=== PATIENT | female | born 1940 | race Caucasian/White ===

== ENCOUNTER → 2018-06-15 07:46 | Outpatient (CLI) | payer MEDICARE, OTHER, SELFPAY ==
--- NOTE | 2018-06-15 | DI.MG.S_ITS ---
BILATERAL DIGITAL SCREENING MAMMOGRAM 3D/2D WITH CAD: 06/15/2018 CLINICAL: Routine screening. Comparison is made to exams dated: 12/12/2016 mammogram, 10/23/2015 mammogram - [facility], 05/04/2013 mammogram, 04/10/2011 mammogram, and 04/21/2013 mammogram - [facility]. The tissue of both breasts is heterogeneously dense. This may lower the sensitivity of mammography. Current study was also evaluated with a Computer Aided Detection (CAD) system. There are benign vascular calcifications in the right breast. No significant masses, calcifications, or other findings are seen in either breast. There has been no significant interval change. IMPRESSION: BENIGN There is no mammographic evidence of malignancy. A 1 year screening mammogram is recommended. This exam was interpreted at Station ID: [id number]. NOTE: For mammograms, a report in lay terms will be sent to the patient. Approximately 15% of breast malignancies will not be visualized mammographically. In the management of a palpable breast mass, a negative mammogram must not discourage biopsy of a clinically suspicious lesion. Electronically Signed By: Dalton toney/susannah:06/15/2018 08:41:38 letter sent: Normal Exam ACR BI-RADS Category 2: Benign Finding(s) 3342F
== END ==
PROVIDERS: Family Provider Family Medicine; PCP Family Medicine; Visit Provider Family Medicine
DX: Z12.31 Encounter for screening mammogram for malignant neoplasm of breast (principal)
CPT/HCPCS: 77063; 77067

== ENCOUNTER → 2019-07-16 12:08 | Outpatient (CLI) | payer MEDICARE, OTHER, SELFPAY ==
--- NOTE | 2019-07-16 | DI.MG.S_ITS ---
BILATERAL DIGITAL SCREENING MAMMOGRAM 3D/2D WITH CAD: 07/16/2019 CLINICAL: Routine screening. Comparison is made to exams dated: 06/15/2018 mammogram, 12/12/2016 mammogram, and 10/23/2015 mammogram - [facility]. The tissue of both breasts is heterogeneously dense. This may lower the sensitivity of mammography. Current study was also evaluated with a Computer Aided Detection (CAD) system. There are benign vascular calcifications in the right breast. No significant masses, calcifications, or other findings are seen in either breast. There has been no significant interval change. IMPRESSION: There is no mammographic evidence of malignancy. A 1 year screening mammogram is recommended. This exam was interpreted at Station ID: [id number]. NOTE: For mammograms, a report in lay terms will be sent to the patient. Approximately 15% of breast malignancies will not be visualized mammographically. In the management of a palpable breast mass, a negative mammogram must not discourage biopsy of a clinically suspicious lesion. Electronically Signed By: Kayli lawrence/susannah:07/16/2019 13:07:35 letter sent: Normal Exam ACR BI-RADS Category 2: Benign Finding(s) 3342F
== END ==
PROVIDERS: PCP Family Medicine; Visit Provider Family Medicine
DX: Z12.31 Encounter for screening mammogram for malignant neoplasm of breast (principal)
CPT/HCPCS: 77063; 77067

== ENCOUNTER → 2020-12-06 11:31 | Outpatient (CLI) | payer MEDICARE, OTHER, SELFPAY ==
[2020-12-06] MEDS: COVID-19 VACC, Ad26(JANSSEN)/PF 0.5 ML IM (12:01)
== END ==
PROVIDERS: Visit Provider Internal Medicine
DX: Z23 Encounter for immunization (principal)
CPT/HCPCS: 0031A; 91303

== ENCOUNTER → 2021-08-03 10:17 | Outpatient (CLI) | payer MEDICARE, OTHER, SELFPAY ==
[2021-08-03] MEDS: COVID-19 VACC #3, MRNA(MOD) 50 MCG/0.25 ML VIAL IM (10:25)
== END ==
PROVIDERS: Visit Provider Internal Medicine
DX: Z23 Encounter for immunization (principal)
CPT/HCPCS: 0013A; 91301

== ENCOUNTER → 2021-09-03 08:36 | Outpatient (CLI) | payer MEDICARE, OTHER, SELFPAY ==
[2021-09-03 11:38] LABS: COVID19 -Nasal RAPID Negative (Negative)
== END ==
PROVIDERS: Visit Provider Nurse Practitioner Family
DX: Z20.822 Contact with and (suspected) exposure to COVID-19 (principal)
CPT/HCPCS: 87635; C9803

== ENCOUNTER 2021-09-05 07:09 | Day surgery (SDC) | payer MEDICARE, OTHER, SELFPAY ==
[2021-09-05] VITALS (7 sets, daily range): BP systolic 111–187; BP diastolic 60–95; PULSE 80–93; RESP 14–22; TEMP 36.3–36.8; O2SAT 94–97; BMI 32.5
--- NOTE | 2021-09-05 | PATH_ITS ---
[facility] Accession Number: [id number] . 01 Material submitted: . PART A: colon - TRANSVERSE COLON POLYP PART B: sigmoid colon - SIGMOID COLON POLYP . 02 Diagnosis: A. Transverse Colon Polyp: Portions of tubular adenoma x2. . B. Sigmoid Colon Polyp: Portion of hyperplastic polyp x1. Portion of tubular adenoma x1. [facility] 09/10/2021 1507 Local . 02 Electronically signed: . Juliet Daniels MD, Pathologist NPI- [id number] . 01 Gross description: . Part A: TRANSVERSE COLON POLYP: Received in formalin are 2 fragment(s) of saucedo, soft tissue measuring 0.3 x 0.3 x 0.3 cm to 0.3 x 0.3 x 0.2 cm submitted entirely in 1 cassette(s) Part B: SIGMOID COLON POLYP: Received in formalin is 1 fragment(s) of saucedo, soft tissue measuring 0.6 x 0.4 x 0.1 cm submitted entirely in 1 cassette(s) /QB 09/06/2021 0852 Local . 02 Pathologist provided ICD-10: K63.5 . 02 CPT . 565216, [id number] Performed at: 01 [facility] [address], [place], [place] [id number] MD Kingston Benavides MD Phone: [phone] Performed at: 02 [facility] [address] [place], [place] [id number] MD Belkis Martinez MD Phone: [phone]
[2021-09-05] MEDS: LACTATED RINGERS 1,000 ML 42 ML IV (08:02)
--- NOTE | 2021-09-05 08:32 | PM.HP.1 ---
History of Present Illness History of Present Illness Date Patient Seen: 09/05/21 Chief complaint: DX COLONOSCOPY Narrative: Family history of colon cancer and polyps in first-degree relatives Patient History Medical History (Updated 09/05/21 @ 07:42 by Swetha Sierra RN) Ankle fracture, right Hypertension Surgical History (Updated 09/05/21 @ 07:42 by Swetha Sierra RN) H/O: hysterectomy History of hip replacement Family & Social History Social History: household members none Tobacco & Substance use: Smoking Status Never smoker alcohol intake frequency a few times a week Substance Use Type does not use Meds Home Medications and Allergies Home Medications Medication Instructions Recorded Confirmed Type Synthroid 100 mg PO DAILY 09/05/21 09/05/21 History estradiol 0.5 mg PO DAILY 09/05/21 09/05/21 History etodolac 400 mg PO DAILY 09/05/21 09/05/21 History metoprolol tartrate 50 mg PO DAILY 09/05/21 09/05/21 History Allergies Allergy/AdvReac Type Severity Reaction Status Date / Time No Known Drug Allergies Allergy Verified 09/05/21 07:31 Exam Vital Signs (past 8 hours): - 09/05/21 07:25 Temperature 98.2 F Pulse Rate 93 H Respiratory Rate 16 Blood Pressure 187/95 H Pulse Oximetry 97 Oxygen Delivery Method Room Air Narrative Exam Narrative: Oropharynx free of lesions Chest clear to auscultation percussion Cardiac exam reveals no S3 or murmur Assessment & Plan Assessment & Plan narrative: Family history of colon cancer and polyps in first-degree relatives. Need for follow-up colonoscopy at a 5 year interval. Risks, benefits, alternatives have been explained. Time Spent With Patient Critical Care time: I spent a total of [] minutes of critical care time on this patient's care today; this time is exclusive of procedural time.
--- NOTE | 2021-09-05 08:34 | PM.OP.COLON ---
Operative Date/Time/Diagnoses Date of procedure: 09/05/21 Pre-op diagnosis: See indication and findings Procedure & Clinicians Study performed: Colonoscopy Indications: 1st degree relatives with polyps and colon cancer Surgeon: Glenroy Sommers Procedure Notes Procedure in detail: After informed consent was obtained the patient was placed in the left lateral decubitus position. The video colonoscope was introduced the rectum slowly advanced to the cecum. Preparation was good. On slow withdrawal mucosa was carefully examined. The scope was removed. The patient tolerated procedure well. Blood loss none Complications none Sedation mac Findings 1. 5 mm polyp in the proximal transverse colon Jumbo biopsy removed completely 2. 3 mm polyp at 40 cm/sigmoid colon. Jumbo biopsy removed completely 3. Otherwise negative colonoscopy to cecum Will follow up on biopsy results but if the patient is in good health would follow-up in 3-5 years. On the other hand this could be her last colonoscopy at age 81.
--- NOTE | 2021-09-05 09:03 | SUR.PHASEI ---
Received to PACU after colonoscopy with sedation. Report from SLOAN Castillo and VENUS Coleman.
== END 2021-09-05 09:40 | disposition home or self-care (01) ==
PROVIDERS: PCP Family Medicine; Referring Provider Internal Medicine Gastroenterology; Visit Provider Internal Medicine Gastroenterology
PROC: 0DJD8ZZ Inspection of Lower Intestinal Tract, Via Natural or Artificial Opening Endoscopic (ICD-10-PCS; CPT 45378; principal; 2021-09-05 08:30)
DX: Z12.11 Encounter for screening for malignant neoplasm of colon (principal); Z80.0 Family history of malignant neoplasm of digestive organs; Z83.71 Family history of colonic polyps; I10 Essential (primary) hypertension; D12.3 Benign neoplasm of transverse colon; D12.5 Benign neoplasm of sigmoid colon
CPT/HCPCS: 45380; J2704

== ENCOUNTER → 2023-01-10 10:48 | Outpatient (CLI) | payer MEDICARE, OTHER, SELFPAY ==
[2023-01-10 12:07] LABS: BUN Creatinine Ratio 26.2 (6-22); Blood Urea Nitrogen 17 mg/dL (7-17); Calcium 9.7 mg/dL (8.4-10.2); Carbon Dioxide 26 mmol/L (22-32); Chloride 103 mmol/L (98-107); Estimated Glomerular Filt Rate > 60 mL/min (>60); Glucose 112 mg/dL (80-110); HEMOLYSIS < 15 (0-50); Potassium 4.4 mmol/L (3.4-5.1); Sodium 138 mmol/L (137-145)
[2023-01-10 12:11] LABS: Add Manual Diff / Slide Review SLIDE REVIEW; Basophils Absolute Auto 0 /uL (0-100); Basophils Percent Auto 0.7 % (0-2); Eosinophils Absolute Auto 0 /uL (0-450); Eosinophils Percent Auto 0.4 % (2-4); Hematocrit 43.2 % (36-46); Hemoglobin 14.6 g/dL (12.0-16.0); Lymphocytes Absolute Auto 1600 /uL (1100-4500); Lymphocytes Percent Auto 22.8 % (25-40); Mean Corpuscular HGB Conc 33.8 % (30-36); Mean Corpuscular Hemoglobin 30.9 PG (26-34); Mean Corpuscular Volume 91.4 fL (80-100); Monocytes Absolute Auto 1500 /uL (0-900); Neutrophils Absolute Auto 3700 /uL (1500-7000); Neutrophils Percent Auto 54.1 % (50-75); Platelet Count 86 X10^3/uL (150-400); Red Blood Cell Count 4.73 X10^6/uL (4.0-5.2); Red Cell Distribution Width 16.1 % (11.6-14.8); White Blood Cell Count 6.8 X10^3/uL (4.5-11.0)
[2023-01-10 12:39] LABS: Thyroid Stimulating Hormone 1.51 uIU/mL (0.47-4.68)
[2023-01-10 14:01] LABS: Anisocytosis 1+
== END ==
PROVIDERS: PCP Family Medicine; Referring Provider Family Medicine; Visit Provider Family Medicine
DX: I10 Essential (primary) hypertension (principal); D69.49 Other primary thrombocytopenia; E03.9 Hypothyroidism, unspecified
CPT/HCPCS: 36415; 80048; 84443; 85025

== ENCOUNTER → 2023-01-21 10:41 | Outpatient (CLI) | payer MEDICARE, OTHER, SELFPAY ==
--- NOTE | 2023-01-21 | DI.RAD.S_ITS ---
Bone Density Report Name: JARED FITZGERALD Age: 82 Sex: Female Ethnicity: White Date of : 1940 Indication: postmenopausal; screening for osteoporosis; prior fracture; Referring Provider: AMANDA CARDONA Study: Bone densitometry was performed. Exam Date: January 21, 2023 Accession number: [id number] Bone Density: Region BMD T-score Z-score Classification AP Spine(L1, L2) 1.078 0.9 3.5 Normal Femoral Neck (Right) 0.819 -0.3 2.2 Normal Total Hip (Right) 0.923 -0.2 2.1 Normal Total Forearm (Left) 0.544 -0.7 2.8 Normal 1/3 Forearm (Left) 0.662 -0.5 3.0 Normal UD Forearm (Left) 0.423 -0.4 2.2 Normal World Health Organization criteria for BMD impression classify patients as: Normal (T-score at or above -1.0), Osteopenia (T-score between -1.0 and -2.5), or Osteoporosis (T-score at or below -2.5). 10-year Fracture Risk: FRAX not reported because: All T-scores for Spine Total, Hip Total, Femoral Neck at or above -1.0 Prior hip or vertebral fracture Previous Exams: -- Region Exam Age BMD T-score BMD Change BMD Change Date g/cm2 vs Baseline vs Previous -- AP Spine (L1-L2) 01/21/2023 82 1.078 0.9 0.071 (7.1%)# 0.071 (7.1%)# 12/23/2016 76 1.007 0.3 Total Hip(Right) 01/21/2023 82 0.923 -0.2 0.106 (13.0%)# 0.106 (13.0%)# 12/23/2016 76 0.817 -1.0 -- *Denotes significance at 95% confidence level, LSC for AP Spine = 0.022 g/cm2, LSC for Total Hip = 0.027 g/cm2 # Denotes dissimilar scan types or analysis methods Impression: The patient has normal bone mass. The patient has risk factors, including: previous fracture. No significant bone loss was observed. Discussion: INCREASED RISK OF FRACTURE DUE TO HISTORY OF FRACTURE. The patient's previous fracture puts the patient at high risk of a future fracture. In untreated patients, the risk of osteoporotic fracture increases approximately two-fold for each 1.0 SD decrease in T-score. Low bone density is not the only risk factor for fracture; also consider factors such as patient's age, frailty or poor health, risk of falling, risk of injury, previous osteoporotic fracture, family history of osteoporosis, cigarette smoking, low body weight, etc. Not everyone with a low trauma fracture has osteoporosis; osteomalacia and other metabolic bone disorders should also be considered. Patients who have osteoporosis should be evaluated for specific diseases and conditions (secondary causes) that may cause or contribute to bone loss and fracture risk. National Osteoporosis Foundation (NOF) recommends pharmacologic intervention for patients with a prior hip or vertebral fracture regardless of BMD T-score. The patient should follow a healthful lifestyle (good nutrition with adequate calcium and vitamin D, and appropriate weight-bearing exercise). Follow-Up: Consider a repeat BMD and Vertebral Fracture Assessment (VFA) exam in 2 years or sooner if medically necessary, to reassess this patient's status. Reported by: GRACIELA BARRETO M.D. on 01/21/2023 11:25:00 AM.
== END ==
PROVIDERS: PCP Family Medicine; Referring Provider Family Medicine; Visit Provider Family Medicine
DX: Z78.0 Asymptomatic menopausal state (principal); Z13.820 Encounter for screening for osteoporosis
CPT/HCPCS: 77080; 77081

== ENCOUNTER → 2025-06-04 09:47 | Outpatient (CLI) | payer MEDICARE, OTHER, SELFPAY ==
--- NOTE | 2025-06-04 09:48 | DI.CT.S_ITS ---
PROCEDURE: CT ABDOMEN PELVIS W CON INDICATIONS: Ventral abdominal hernia TECHNIQUE: After the administration of intravenous contrast, axial sections acquired from the lung bases to the pubic symphysis. Coronal and sagittal reformats were performed. For radiation dose reduction, the following was used: automated exposure control, adjustment of mA and/or kV according to patient size. COMPARISON: [facility], , [place] ABDOMEN COMPLETE, 05/26/2025, 7:31. FINDINGS: Image quality: Diagnostic. Lower Chest: No significant findings. ABDOMEN: Liver: No solid mass. Gallbladder: Absent. Biliary ducts: No biliary dilation. Pancreas: No ductal dilation. Spleen: Size is within normal limits. Band area of hypodensity at the lateral aspect, (3/82). This could represent the sequelae of prior infarction or other insult. Adrenal Glands: Left adrenal nodule measuring 0.7 cm, (229). Low-density. Kidneys and Ureters: No hydronephrosis. No solid mass. No complex renal cystic lesion which requires follow up. Suspected lymphocele adjacent to the left kidney. Stomach and Bowel: Normal colonic caliber, without significant wall thickening. Diverticulosis. The appendix is not seen. No small bowel obstruction. Stomach is within normal limits. Peritoneum: No abnormal intraperitoneal fluid. No free air. Ventral Wall: Large ventral abdominal wall hernia containing small bowel and colon. The hernia neck measures 7.1 cm, (279). No fluid in the hernia sac. Abdominal Nodes: No retroperitoneal or mesenteric adenopathy by size criteria. Vessels: Aorta and inferior vena cava are normal in size. Calcified atherosclerotic plaque. PELVIS: Pelvic Organs: Uterus is absent. Bladder: No bladder wall thickening. Pelvic Nodes: No enlarged lymph nodes. Miscellaneous: No inguinal hernias are seen. Bones: No aggressive osseous abnormality. Multilevel DDD. Left hip arthroplasty. IMPRESSION: 1. Large ventral abdominal wall hernia containing bowel. Wide hernia neck. 2. No small bowel obstruction. No free fluid. 3. Incidental low-density left adrenal nodule measuring 0.7 cm. This most likely represents a small adenoma. Dictated by: Stephen Krishna M.D. on 06/05/2025 at 8:22 Approved by: Stephen Krishna M.D. on 06/05/2025 at 8:31
[2025-06-04 11:18] LABS: Estimated Glomerular Filt Rate > 60 mL/min (>60)
== END ==
PROVIDERS: PCP Family Medicine; Referring Provider Surgery; Visit Provider Surgery
DX: K43.9 Ventral hernia without obstruction or gangrene (principal); E27.9 Disorder of adrenal gland, unspecified; K57.90 Diverticulosis of intestine, part unspecified, without perforation or abscess without bleeding; Z90.49 Acquired absence of other specified parts of digestive tract; Z90.710 Acquired absence of both cervix and uterus; Z96.642 Presence of left artificial hip joint
CPT/HCPCS: 36415; 74177; 82565; Q9967